=== PATIENT | male | born 2005 | race Hispanic/Latino ===

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

== ENCOUNTER 2023-09-12 01:24 | Emergency (ER) | payer OTHER ==
[2023-09-12] MEDS ORDERED: diphenhydrAMINE 25 MG CAP ONE (01:46)
== END 2023-09-12 02:00 | disposition home or self-care (01) ==
LOC: BURERS 01:24
DX: S60.562A Insect bite (nonvenomous) of left hand, initial encounter (principal); I10 Essential (primary) hypertension; E10.9 Type 1 diabetes mellitus without complications; W57.XXXA Bitten or stung by nonvenomous insect and other nonvenomous arthropods, initial encounter; Z79.899 Other long term (current) drug therapy
CPT/HCPCS: 99283

== ENCOUNTER 2023-09-16 09:02 | Emergency (ER) | payer OTHER ==
[2023-09-16] MEDS ORDERED: Bacitracin 1 PK ONE (09:14)
[2023-09-16] MEDS ORDERED: Lidocaine 1% w/Epinephrine 1:100K 20 ML VIAL ONE (09:14)
[2023-09-16] MEDS ORDERED: Boostrix 0.5 ML (Tdap) VIAL (>/=7 yrs of age) ONE (09:26)
== END 2023-09-16 10:10 | disposition home or self-care (01) ==
LOC: BURERS 09:02
DX: S81.811A Laceration without foreign body, right lower leg, initial encounter (principal); I10 Essential (primary) hypertension; E10.9 Type 1 diabetes mellitus without complications; Z79.4 Long term (current) use of insulin; Z79.899 Other long term (current) drug therapy; Z23 Encounter for immunization; W29.3XXA Contact with powered garden and outdoor hand tools and machinery, initial encounter
CPT/HCPCS: 12032; 90471; 90715

== ENCOUNTER 2023-09-30 10:55 | Emergency (ER) | payer OTHER | END 2023-09-30 11:13 | disposition home or self-care (01) | LOC: BURERS 10:55 | DX: S81.811D Laceration without foreign body, right lower leg, subsequent encounter (principal); E11.9 Type 2 diabetes mellitus without complications; W29.3XXD Contact with powered garden and outdoor hand tools and machinery, subsequent encounter; Z79.84 Long term (current) use of oral hypoglycemic drugs; Z79.4 Long term (current) use of insulin ==